=== PATIENT | female | born 1985 ===

== ENCOUNTER 2016-07-24 01:43 | Emergency (ER) | payer OTHER ==
[2016-07-24 02:40] VITALS: BP 112/66; PULSE 64; TEMP 98; BMI 33.2
--- NOTE | 2016-07-24 03:22 | PDOC ---
History of Present Illness - General History Source: Patient Exam Limitations: No Limitations - History of Present Illness Initial Comments: 07/24/16 05:05 The patient is a 30 year old, 6 week , female with no significant past medical history, who presents to the ER with vaginal bleeding and cramping for a few days. Patient states she had a sonogram done five days ago at the OBs office and was told they saw the sac but were not able to see the pole. Patient reports she began to spot four days ago. On interview, patient states she has heavy vaginal bleeding with associated abdominal cramping. Patient says she had vaginal bleeding during the first trimester of her previous , but the flow was not as heavy. 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 BUSINESS ANALYTICS ANALYST: Dr. Carrion <Rashida Dhaliwal - Last Filed: 07/24/16 05:04> <Yue Richter - Last Filed: 07/25/16 22:48> - General Chief Complaint: Vaginal Bleeding Stated Complaint: VAGINAL BLEEDING/ 6WKS Time Seen by Provider: 07/24/16 01:47 Past History <Rashida Dhaliwal - Last Filed: 07/24/16 05:04> - Past Medical History Asthma: No Cancer: No Cardiac Disorders: No Diabetes: No HTN: No Seizures: No Thyroid Disease: No - Reproductive History Is Patient Now?: Yes Therapeutic (s) & number: No - Immunization History Immunization Up to Date: Yes - Psycho/Social/Smoking Cessation Hx Suicidal Ideation: No Smoking History: Never smoked Have you smoked in the past 12 months: No Information on smoking cessation initiated: No Hx Alcohol Use: No Drug/Substance Use Hx: No Substance Use Type: None Hx Substance Use Treatment: No <Yue Richter - Last Filed: 07/25/16 22:48> - Past Medical History Allergies/Adverse Reactions: Allergies Allergy/AdvReac Type Severity Reaction Status Date / Time nitrofurantoin Allergy Mild Itching Verified 07/24/16 02:38 [From Macrobid] nitrofurantoin Allergy Mild Itching Verified 07/24/16 02:38 macrocrystalline [From Macrobid] Home Medications: Ambulatory Orders Vit/Iron Fumarate/FA [ Tablet] 1 tab PO DAILY 09/01/15 Review of Systems - Review of Systems Able to Perform ROS?: Yes Comments:: 07/24/16 05:06 CONSTITUTIONAL: Absent: fever, no chills, no fatigue EYES: Absent: visual changes ENT: Absent: ear pain, no sore throat CARDIOVASCULAR: Absent: chest pain, no palpitations RESPIRATORY: Absent: cough, no SOB GI: Present: (+) abdominal cramping Absent: no nausea, no vomiting, no constipation, no diarrhea GENITOURINARY: Absent: dysuria, no frequency, no hematuria PELVIC: Present: (+) vaginal spotting MUSCULOSKELETAL: Absent: back pain, no arthralgia, no myalgia SKIN: Absent: rash NEURO: Absent: headache <Uts,Rashida - Last Filed: 07/24/16 05:04> *Physical Exam - Vital Signs Last Vital Signs Temp Pulse Resp BP Pulse Ox 98.0 F 64 20 112/66 100 07/24/16 02:38 07/24/16 02:38 07/24/16 02:38 07/24/16 02:38 07/24/16 02:38 - Physical Exam Comments: 07/24/16 05:07 GENERAL: Well-appearing, well-nourished. No apparent distress. HEENT: Normocephalic, atraumatic. PERRL, EOM intact. CARDIOVASCULAR: Normal S1, S2. Regular rate and rhythm. PULMONARY: Clear to auscultation bilaterally. ABDOMEN: Soft, non-distended, non-tender. EXTREMITIES: Normal ROM in all four extremities. No gross deformities. SKIN: Warm, dry. No rash NEUROLOGICAL: No focal neurological deficits. <MadhuriRashida - Last Filed: 07/24/16 05:04> - Vital Signs Last Vital Signs Temp Pulse Resp BP Pulse Ox 98.0 F 64 20 112/66 100 07/24/16 02:38 07/24/16 02:38 07/24/16 02:38 07/24/16 02:38 07/24/16 02:38 <Yue Richter - Last Filed: 07/25/16 22:48> ED Treatment Course - ADDITIONAL ORDERS Additional order review: Laboratory Results 07/24/16 04:20 Urine Color Straw Urine Appearance Clear Urine pH 6.0 Urine Protein Negative Urine Glucose (UA) Negative Urine Ketones Negative Urine Blood 3+ H Urine Nitrite Negative Urine Bilirubin Negative Urine Urobilinogen Negative Ur Leukocyte Esterase Negative - Medications Given in the ED: ED Medications Discontinued Medications Generic Name Dose Route Start Last Admin Trade Name Goran PRN Reason Stop Dose Admin Acetaminophen 650 mg 07/24/16 04:58 07/24/16 05:01 Tylenol - PO 07/24/16 04:59 650 mg ONCE ONE Administration <Rashida Dhaliwal - Last Filed: 07/24/16 05:04> - RADIOLOGY Radiology Studies Ordered: Category Date Time Status <14WKS US [US] Stat Ultrasound 07/24/16 01:47 Taken <Yue Richter - Last Filed: 07/25/16 22:48> Medical Decision Making - Medical Decision Making 07/24/16 03:22 Patient Name: Evelyn Cano THIS IS A PRELIMINARY REPORT FROM [facility] IMAGES: 40 EXAM DATE AND TIME: 2016-07-24 01:48:00.0 EXAM: ULTRASOUND PELVIS, COMPLETE AND TRANSVAGINAL ULTRASOUND AND DUPLEX SCAN PELVIS, INCOMPLETE Small probable gestational sac 6 weeks 6 days by measurement in or near cervix. Yolk sac and possible septations within the sac but no visible pole. Endometrial stripe complex approximately 7 mm thick. No adnexal masses appreciated. Findings probably represent in progress. No right ovarian torsion. Venous waveforms seen. Left ovary not visualized. Possible trace free fluid versus artifact in cul-de-sac. Unremarkable visualized portion of bladder. 07/25/16 22:46 I discussed the result with the patient. Early vs. possible miscarriage in process. Pt had a similar sono at her Ob/GYNs and they are following her serial bhcg to make sure that the is progressing. <Yue Richter - Last Filed: 07/25/16 22:48> *DC/Admit/Observation/Transfer - Attestations Scribe Attestion: 07/24/16 05:07 Documentation prepared by Rashida Dhaliwal, acting as medical assisting instructor for Yue Richter MD. <Rashida Dhaliwal - Last Filed: 07/24/16 05:04> <Yue Richter - Last Filed: 07/25/16 22:48> Diagnosis at time of Disposition: discharged home - Discharge Dispostion Disposition: HOME - Referrals Referrals: Debora Carrion MD [Primary Care Provider] - - Post Discharge Activity Work/School Note: Back to Work
[2016-07-24 04:36] LABS: URINE APPEARANCE CLEAR; URINE BILIRUBIN NEGATIVE (NEGATIVE); URINE COLOR STRAW; URINE GLUCOSE (UA) NEGATIVE (NEGATIVE); URINE KETONE NEGATIVE (NEGATIVE); URINE LEUK ESTERASE NEGATIVE (NEGATIVE); URINE NITRITE NEGATIVE (NEGATIVE); URINE PROTEIN NEGATIVE (NEGATIVE); URINE UROBILINOGEN NEGATIVE E.U./dl (0.2-1.0)
[2016-07-24 04:45] LABS: URINE BLOOD 3+ (NEGATIVE)
[2016-07-24 04:46] LABS: URINE BACTERIA RARE /hpf (NONE SEEN); URINE MUCUS RARE; URINE RBC 340 /hpf (0-3); URINE WBC 12 /hpf (3-5)
[2016-07-24] MEDS ORDERED: ACETAMINOPHEN 325 MG TABLET (FP) PO ONE (04:58)
[2016-07-24] MEDS ORDERED: ACETAMINOPHEN 325 MG TABLET (FP) ONE (05:00)
== END 2016-07-24 05:20 | disposition home or self-care (01) ==
LOC: JER 01:43
DX: O20.0 Threatened abortion (principal); Z3A.01 Less than 8 weeks gestation of pregnancy
CPT/HCPCS: 36415; 76801-TC; 81003; 81015; 84702; 99282-25